=== PATIENT | male | born 1995 | race Caucasian/White ===

== ENCOUNTER 2017-06-14 17:47 | Emergency (ER) | payer OTHER ==
[2017-06-14] MEDS ORDERED: Lidocaine 4% Cream 5 GM TUBE w/ Tegaderm ONE (19:21)
[2017-06-14] MEDS ORDERED: Lidocaine 1% PF 5 ML VIAL ONE (19:56)
[2017-06-14] MEDS ORDERED: Bacitracin Zinc 1 Packet ONE (20:21)
== END 2017-06-14 21:40 | disposition home or self-care (01) ==
LOC: ERS 17:47
DX: S01.81XA Laceration without foreign body of other part of head, initial encounter (principal); S01.111A Laceration without foreign body of right eyelid and periocular area, initial encounter; W51.XXXA Accidental striking against or bumped into by another person, initial encounter; Y93.61 Activity, american tackle football
CPT/HCPCS: 12011; J2001

== ENCOUNTER 2017-06-19 07:16 | Emergency (ER) | payer OTHER | END 2017-06-19 08:32 | disposition home or self-care (01) | LOC: ERS 07:16 | DX: S01.111D Laceration without foreign body of right eyelid and periocular area, subsequent encounter (principal); Z48.02 Encounter for removal of sutures; W51.XXXD Accidental striking against or bumped into by another person, subsequent encounter ==